=== PATIENT | female | born 1935 | race Caucasian/White ===

== ENCOUNTER 2017-08-12 22:58 | Inpatient (IN) ==
[2017-08-12 23:44] LABS: Basophils % 0.1 % (0.0-0.8); Eosinophils % 0.5 % (0.00-10.9); Hematocrit 38.3 VOL% (35.7-47.0); Hemoglobin 12.9 GM/DL (12.0-16.0); Immature Granulocytes % 1.9 %; Immature Granulocytes Absolute 0.14 #; Lymphocytes # 3.5 10*3/uL (1.4-4.0); Lymphocytes % 47.5 % (21.3-54.2); Mean Corpuscular HGB Conc 33.7 GM/DL (32-36); Mean Corpuscular Hemoglobin 32 PG (27-34); Mean Corpuscular Volume 95.8 FL (87-102); Mean Platelet Volume 10.9 FL (9.6-12.0); Monocytes # 0.9 10*3/uL (0.11-0.8); Neutrophils # 2.8 10*3/uL (1.4-7.4); Platelet Count 128 T/CUMM (130-400); Red Cell Distribution Width 13.2 % (9.3-17.3); White Blood Count 7.3 T/CUMM (4-12)
[2017-08-12] MEDS ORDERED: NITROGLYCERIN 2% OINT 1 INCH/GM PACK TOP STA (23:48)
[2017-08-12] MEDS ORDERED: MORPHINE 2 MG/1 ML SYRINGE IV STA (23:48)
[2017-08-12] MEDS ORDERED: ASPIRIN 325 MG TABLET PO STA (23:48)
[2017-08-12] MEDS ORDERED: ONDANSETRON 4 MG/2 ML VIAL IV STA (23:48)
[2017-08-12] MEDS ORDERED: ENOXAPARIN 100 MG/ML SYRINGE SUBCUT STA (23:48)
[2017-08-12] MEDS ORDERED: ALUM/MAG/SIMETH/LIDO VISC 1:1 30 ML BOTTLE PO STA (23:48)
[2017-08-12 23:51] LABS: PT Patient Result 10.5 SECS; Partial Thromboplastin Time 24.6 SECS (0-40)
[2017-08-13] MEDS ORDERED: NITROGLYCERIN 2% OINT 1 INCH/GM PACK TOP ONE
[2017-08-13 00:01] LABS: Alanine Aminotransferase 13 U/L (13-56); Albumin 4.2 G/DL (3.4-5.0); Alkaline Phosphatase 53 U/L (45-117); Aspartate Amino Transferase 16 U/L (0-37); Blood Urea Nitrogen 26 MG/DL (7-18); Calcium 9.3 MG/DL (8.5-10.1); Glucose 100 MG/DL (74-106); Osmolality,Calculated 277.8 MOS/KG (273-304); Sodium 137 MMOL/L (136-145); Total Protein 6.9 G/DL (6.4-8.3); Troponin I Only < 0.015 NG/ML (0.00-0.045)
[2017-08-13] MEDS ORDERED: MORPHINE 2 MG/1 ML SYRINGE ONE ×2 (00:01→01:36)
[2017-08-13] MEDS ORDERED: ALUM/MAG/SIMETH/LIDO VISC 1:1 30 ML BOTTLE PO ONE (00:01)
[2017-08-13] MEDS ORDERED: ONDANSETRON 4 MG/2 ML VIAL ONE ×2 (00:01→01:36)
[2017-08-13 00:09] LABS: Magnesium 2.4 MG/DL (1.8-2.4)
[2017-08-13 00:10] LABS: Band Neutrophils 2 % (0-10); Eosinophils 1 % (0-10); Lymphocytes 43 % (20-55); Myelocytes 5 %; Segmented Neutrophils 48 % (50-85)
[2017-08-13 00:11] LABS: Platelet Estimate Adequate; Total Cells Counted 100
[2017-08-13 00:24] LABS: Apearance,Urine CLEAR (Clear); Bilirubin,Urine Negative (Negative); Blood, Urine Moderate mg/dL (Negative); Glucose,Urine (UA) Negative (Negative); Ketones,Urine 20 mg/dL (Negative); Mucus,Urine Occasional /LPF (Occasional); Nitrite,Urine Negative (Negative); Protein,Urine Negative; RBC,Urine 6 /HPF (0-4); Squamous Epithelial Cell,Urine Occasional /HPF (0-10); Urine Color Yellow (Yellow); Urine Specific Gravity 1.014 (1.001-1.035); Urine Urobilinogen < 2.0 EU/DL (0.2-1.0); WBC,Urine 3 /HPF (0-6)
[2017-08-13] MEDS ORDERED: ONDANSETRON 4 MG/2 ML VIAL IV STA (01:35)
[2017-08-13] MEDS ORDERED: MORPHINE 2 MG/1 ML SYRINGE IV STA (01:35)
[2017-08-13] MEDS ORDERED: ONDANSETRON 4 MG/2 ML VIAL IV PRN (02:31)
[2017-08-13] MEDS ORDERED: MORPHINE 2 MG/1 ML SYRINGE IV PRN (02:31)
[2017-08-13] MEDS ORDERED: ZALEPLON 5 MG CAPSULE PO PRN (02:31)
[2017-08-13] MEDS ORDERED: diphenhydrAMINE CAP 25 MG CAPSULE PO PRN (02:40)
[2017-08-13] MEDS ORDERED: ACETAMINOPHEN 325 MG TABLET PO PRN (02:40)
[2017-08-13] MEDS ORDERED: ALPRAZolam 0.25 MG TABLET PO PRN (02:40)
[2017-08-13 03:45] LABS: Risk Ratio 2.09; VLDL CHOLESTEROL 7.4 MG/DL
[2017-08-13 08:43] LABS: Eosinophils % 0.2 % (0.00-10.9); Hematocrit 38.1 VOL% (35.7-47.0); Hemoglobin 12.8 GM/DL (12.0-16.0); Immature Granulocytes % 2.2 %; Immature Granulocytes Absolute 0.13 #; Lymphocytes # 1.5 10*3/uL (1.4-4.0); Lymphocytes % 25.1 % (21.3-54.2); Mean Corpuscular HGB Conc 33.6 GM/DL (32-36); Mean Corpuscular Hemoglobin 32 PG (27-34); Mean Corpuscular Volume 96.2 FL (87-102); Mean Platelet Volume 10.8 FL (9.6-12.0); Monocytes # 0.5 10*3/uL (0.11-0.8); Monocytes % 9.2 % (1.7-12.7); Neutrophils # 3.7 10*3/uL (1.4-7.4); Neutrophils % 63.3 % (38.7-73.9); Platelet Count 118 T/CUMM (130-400); Red Blood Count 3.96 MC/CUMM (3.8-5.5); Red Cell Distribution Width 13.2 % (9.3-17.3); White Blood Count 5.9 T/CUMM (4-12)
[2017-08-13] MEDS ORDERED: TURMERIC CURCUMIN PO SCH (09:00)
[2017-08-13] MEDS ORDERED: ASPIRIN EC 325 MG TABLET PO SCH (09:00)
[2017-08-13] MEDS ORDERED: NON-FORMULARY MEDICATION (Cyanocobalamin (Vitamin B-12) [Vitamin B12] 5,000 MCG) PO SCH (09:00)
[2017-08-13] MEDS ORDERED: ISOSORBIDE MONONITRATE 30 MG TABLET PO SCH (09:00)
[2017-08-13] MEDS ORDERED: MAGNESIUM SULF RIDER 2 GM in PREMIX 1 EACH IV PRN (09:19)
[2017-08-13] MEDS ORDERED: diphenhydrAMINE CAP 25 MG CAPSULE PO ONE (09:19)
[2017-08-13] MEDS ORDERED: DIAZEPAM 5 MG TABLET PO ONE (09:19)
[2017-08-13] MEDS ORDERED: POTASSIUM CHLORIDE RIDER 10 MEQ in PREMIX 1 EACH IV PRN (09:19)
[2017-08-13] MEDS ORDERED: diphenhydrAMINE CAP 50 MG CAPSULE ONE (09:26)
[2017-08-13 09:29] LABS: Free T4 (Free Thyroxine) 1.33 NG/DL (0.76-1.46); Thyroid Stimulating Hormone 1.23 uIU/ml (0.358-3.74)
[2017-08-13] MEDS: POTASSIUM GLUCONATE 500 MG TABLET PO SCH (09:30)
[2017-08-13] MEDS: CILOSTAZOL 50 MG TABLET PO SCH ×2 (09:31→21:03)
[2017-08-13] MEDS: FAMOTIDINE 20 MG TABLET PO SCH ×2 (09:31→21:03)
[2017-08-13] MEDS: CLOPIDOGREL 75 MG TABLET PO SCH (09:31)
[2017-08-13] MEDS: LEVOTHYROXINE 100 MCG TABLET PO SCH (09:31)
[2017-08-13] MEDS: RAMIPRIL 5 MG CAPSULE PO SCH (09:31)
[2017-08-13] MEDS: CHOLECALCIFEROL 1,000 UNIT TABLET PO SCH (09:31)
[2017-08-13] MEDS: NITROGLYCERIN 2% OINT 1 INCH/GM PACK TOP SCH ×3 (09:31→17:58)
[2017-08-13] MEDS ORDERED: LIDOCAINE 1% 20 ML VIAL ONE (09:45)
[2017-08-13] MEDS ORDERED: HYDROmorphone 2 MG/1 ML VIAL ONE (10:21)
[2017-08-13] MEDS ORDERED: MIDAZOLAM 2 MG/2 ML VIAL ONE (10:21)
[2017-08-13] MEDS ORDERED: METOPROLOL TARTRATE 5 MG/5 ML VIAL IV ONE (10:43)
[2017-08-13] MEDS ORDERED: ENOXAPARIN 60 MG/0.6 ML SYRINGE ONE (10:49)
[2017-08-13] MEDS ORDERED: CLOPIDOGREL 300 MG TABLET ONE (10:52)
[2017-08-13] MEDS: MULTIVITAMIN (BEROCCA) TABLET PO SCH (11:14)
[2017-08-13] MEDS ORDERED: SODIUM CHLORIDE 0.45% 1,000 ML IV SCH (11:30)
[2017-08-13 13:59] LABS: CKMB % 11.7 %
[2017-08-13 14:03] LABS: Troponin I Only 4.03 NG/ML (0.00-0.045)
[2017-08-13] MEDS: CARVEDILOL 3.125 MG TABLET PO SCH ×2 (14:34→21:03)
[2017-08-13] MEDS ORDERED: ROSUVASTATIN 20 MG TABLET PO SCH (21:00)
[2017-08-13] MEDS ORDERED: SIMVASTATIN 20 MG TABLET PO SCH (21:00)
[2017-08-13] MEDS ORDERED: ENOXAPARIN 40 MG/0.4 ML SYRINGE SUBCUT SCH (23:00)
[2017-08-14] MEDS: NITROGLYCERIN 2% OINT 1 INCH/GM PACK TOP SCH ×2 (02:16→06:26)
[2017-08-14 05:02] LABS: Eosinophils % 0.2 % (0.00-10.9); Hematocrit 33.9 VOL% (35.7-47.0); Hemoglobin 11.4 GM/DL (12.0-16.0); Immature Granulocytes % 2.4 %; Immature Granulocytes Absolute 0.16 #; Lymphocytes % 30.9 % (21.3-54.2); Mean Corpuscular HGB Conc 33.6 GM/DL (32-36); Mean Corpuscular Hemoglobin 32 PG (27-34); Mean Platelet Volume 11.2 FL (9.6-12.0); Monocytes % 15.7 % (1.7-12.7); Neutrophils # 3.4 10*3/uL (1.4-7.4); Neutrophils % 50.8 % (38.7-73.9); Platelet Count 106 T/CUMM (130-400); Red Blood Count 3.53 MC/CUMM (3.8-5.5); Red Cell Distribution Width 13.2 % (9.3-17.3); White Blood Count 6.6 T/CUMM (4-12)
[2017-08-14 05:41] LABS: CKMB % 8.7 %
[2017-08-14 05:49] LABS: Calcium 8.4 MG/DL (8.5-10.1); Magnesium 2.4 MG/DL (1.8-2.4); Potassium 4.2 MMOL/L (3.5-5.1)
[2017-08-14 06:04] LABS: Hypochromasia 1+; Lymphocytes 32 % (20-55); Segmented Neutrophils 56 % (50-85); Total Cells Counted 100
[2017-08-14 06:05] LABS: Microcytosis Slight; Platelet Estimate Decreased
[2017-08-14 08:33] VITALS: BP 162/71
[2017-08-14] MEDS: CHOLECALCIFEROL 1,000 UNIT TABLET PO SCH (08:59)
[2017-08-14] MEDS: CARVEDILOL 3.125 MG TABLET PO SCH (08:59)
[2017-08-14] MEDS: LEVOTHYROXINE 100 MCG TABLET PO SCH (09:00)
[2017-08-14] MEDS: CLOPIDOGREL 75 MG TABLET PO SCH (09:00)
[2017-08-14] MEDS ORDERED: ASPIRIN EC 81 MG TABLET PO SCH (09:00)
[2017-08-14] MEDS: FAMOTIDINE 20 MG TABLET PO SCH (09:00)
[2017-08-14] MEDS: RAMIPRIL 5 MG CAPSULE PO SCH (09:01)
[2017-08-14] MEDS: POTASSIUM GLUCONATE 500 MG TABLET PO SCH (09:07)
[2017-08-14] MEDS: MULTIVITAMIN (BEROCCA) TABLET PO SCH (09:07)
== END 2017-08-14 10:47 | disposition home or self-care (01) | DRG 247 ==
LOC: N.EDINP 22:58 → N.ED 22:58 → N.TELEN 08-13 03:24 → N.TELES 08-13 03:54
PROVIDERS: ADMIT Internal Medicine; ATTEND Internal Medicine